=== PATIENT | male | born 1980 | race Caucasian/White ===

== ENCOUNTER 2017-04-04 13:18 | Emergency (ER) | payer SELFPAY ==
[~2017-04-04] VITALS: Ht 170.2 cm; Wt 74.4 kg
[2017-04-04] MEDS ORDERED: ACETAMINOPHEN W/ CODEINE#3 1 EA TABLET PO ONE (14:30)
[2017-04-04] MEDS ORDERED: ACETAMINOPHEN W/ CODEINE#3 1 EA TABLET ONE (15:00)
--- NOTE | 2017-04-04 15:50 | NUR ---
ASSUMED CARE OF PT.
--- NOTE | 2017-04-04 15:53 | NUR ---
PT REC'D CLEAN SHEET AND PILLOW TO ELEVATE RLE. PT HAS ICE APPLIED TO RT ANKLE.
--- NOTE | 2017-04-04 16:02 | NUR ---
PAGED SEUN [facility]ERMAN HEART NURSE
[2017-04-04] MEDS ORDERED: ONDANSETRON 4 MG TAB.RAPDIS SL ONE (16:30)
[2017-04-04] MEDS ORDERED: MORPHINE SULFATE INJ 2 MG/ML DISP.SYRIN IM ONE (16:30)
--- NOTE | 2017-04-04 16:30 | NUR ---
TERRY TINAJERO IS AT THE BEDSIDE SPEAKING TO THE PT AND HIS FAMILY. PT REFUSED PAIN MEDICATION ORDERED. PT TOOK HIS OWN ALEVE. IS AWARE.
--- NOTE | 2017-04-04 17:16 | NUR ---
LONG LEG POSTERIOR ORTHOGLASS SPLINT BEING APPLIED. Crutches dispensed. Pt instructed on proper use of crutches. Patient able to demonstrate correct use of crutches.
--- NOTE | 2017-04-04 17:59 | NUR ---
Patient discharged to home in stable condition. Written and verbal after care instructions given. Patient verbalizes understanding of instruction AND RX. PT LEFT VIA WC. VSS. PT TO F/U WITH [facility] IN AM.
[2017-04-04 18:01] VITALS: BP 134/77
== END 2017-04-04 18:02 | disposition home or self-care (01) ==
LOC: ER 13:20
DX: S92.001A Unspecified fracture of right calcaneus, initial encounter for closed fracture (principal); S82.891A Other fracture of right lower leg, initial encounter for closed fracture; W17.89XA Other fall from one level to another, initial encounter; Y93.89 Activity, other specified; Y92.89 Other specified places as the place of occurrence of the external cause; Y99.8 Other external cause status
CPT/HCPCS: 73610-TC; 73650-TC; A4606; Z7610